=== PATIENT | male | born 1955 | race Caucasian/White ===

== ENCOUNTER 2024-01-11 12:00 | Inpatient (IN) ==
[2024-01-11] MEDS ORDERED: Albuterol (2.5 MG) 0.5 % CONC 0.5 ML NEB.SOLN INH ONE (12:15)
[2024-01-11] MEDS ORDERED: Albuterol/Ipratropium NEB.SOL (2.5/0.5 MG) 3 ML NEB.SOLN ONE (12:16)
[2024-01-11 12:33] LABS: ABS Basophils 0.1 10^3/uL (0.0-0.1); ABS Eosinophils 0.1 10^3/uL (0.0-0.5); ABS Lymphocytes 0.6 10^3/uL (1.0-4.8); ABS Monocytes 0.5 10^3/uL (0.0-1.1); ABS Neutrophils 9.7 10^3/uL (1.5-7.6); ABS Nucleated RBC 0.01 10^3/ul; Eosinophil % 0.6 %; Hematocrit 36.6 % (38-53); Hemoglobin 12.1 g/dL (13.2-16.3); Lymphocyte % 5.9 %; Mean Corpuscular Hemoglobin 30.3 pg (27-33); Mean Corpuscular Volume 91.8 fL (80-97); Mean Platelet Volume 8.4 fL (7.5-11.2); Nucleated Red Blood Cells % 0.1 %/100WBC (0.0-0.8); Platelet Count 141 10^3/uL (150-450); Red Blood Count 3.98 10^6/uL (4.06-5.63); Red Cell Distribution Width 16.9 % (12-17); White Blood Count 10.9 10^3/uL (3.6-10.2)
[2024-01-11] MEDS: Albuterol (2.5 MG) 0.5 % CONC 0.5 ML NEB.SOLN INH ONE (12:52)
[2024-01-11 12:59] LABS: High Sens Troponin Baseline 15 pg/mL (<20)
[2024-01-11 13:38] LABS: ALT 20 U/L (7-52); Albumin 3.4 g/dL (3.2-5.2); Albumin/Globulin Ratio 1.7 (1-3); Alkaline Phosphatase 65 U/L (35-149); Anion Gap 7 mmol/L (2-16); Blood Urea Nitrogen 36 mg/dL (6-24); CO2 Carbon Dioxide 28 mmol/L (22-32); Calcium 8.2 mg/dL (8.6-10.3); Chloride 104 mmol/L (101-111); Creatinine, Serum 1.46 mg/dL (0.67-1.17); Glucose 142 mg/dL (70-100); Sodium 139 mmol/L (135-145); Total Bilirubin 0.3 mg/dL (0.2-1.0); Total Protein 5.4 g/dL (6.4-8.9); eGFR CKD-EPI 51.4 (>60)
[2024-01-11] MEDS: methylPREDNISolone SOD SUCC 125 mg 2 ML VIAL IV ONE (13:43)
[2024-01-11 14:03] LABS: High Sensitivity Troponin 1 Hr 17 pg/mL (<20)
[2024-01-11] MEDS: Albuterol 2.5mg/3 ml (0.083%) NEB.SOLN INH ONE (14:45)
[2024-01-11] MEDS ORDERED: Albuterol/Ipratropium NEB.SOL (2.5/0.5 MG) 3 ML NEB.SOLN INH PRN (15:17)
[2024-01-11 15:18] LABS: Potassium Redraw 4.6 mmol/L (3.5-5.0)
[2024-01-11] MEDS: Nicotine PATCH 21 MG/24 HR PATCH TRANSDERM SCH (17:21)
[2024-01-11] MEDS: cefTRIAXone 1 gm/50 mL D5W 1 GM/50 ML BAG IV SCH (17:23)
[2024-01-11] MEDS ORDERED: Dextrose 50% Syringe 50 ml 25 GM/50 ML SYRINGE IV PUSH PRN (17:33)
[2024-01-11 17:45] LABS: INR 1.35 (0.83-1.13)
[2024-01-11] MEDS: Haloperidol 5 mg/ml SDV IV/IM 5 MG/ML AMP IV SLOW PU ONE (22:48)
[2024-01-11] MEDS ORDERED: Rocuronium 50 mg VIAL 10 mg/ml 5 ml VIAL (50 mg) ONE (22:55)
[2024-01-11] MEDS ORDERED: Succinylcholine 200 mg VIAL 20 mg/ml 10 ml VIAL (200 mg) ONE (22:55)
[2024-01-11] MEDS ORDERED: Ketamine HCL 50 mg/ml 10 ml VIAL (500 MG) ONE (22:58)
[2024-01-11] MEDS ORDERED: Propofol 10 mg/ml 100 ML BTL 1,000 MG/100 ML BTL ONE (23:03)
[2024-01-11] MEDS ORDERED: Norepinephrine 4 MG/250mL D5W 4,000 MCG/250 ML BAG IV ONE (23:16)
[2024-01-11 23:49] LABS: PCO2 Arterial 58 mmHg (35-45); PO2 Arterial 77 mmHg (80-100)
[2024-01-11] MEDS: Albuterol/Ipratropium NEB.SOL (2.5/0.5 MG) 3 ML NEB.SOLN INH SCH (23:49)
[2024-01-11] MEDS: Norepinephrine 4 MG/250mL D5W 4,000 MCG/250 ML BAG IV SCH (23:50)
[2024-01-11] MEDS: Propofol 10 mg/ml 100 ML BTL 1,000 MG/100 ML BTL IV SCH (23:51)
[2024-01-11] MEDS: fentaNYL 100 mcg/2 ml 50 MCG/ML VIAL IV SLOW PU PRN (23:56)
[2024-01-12] MEDS ORDERED: fentaNYL 100 mcg/2 ml 50 MCG/ML VIAL IV SLOW PU PRN (00:21)
[2024-01-12 01:31] LABS: Body Fluid Appearance Cloudy; Body Fluid Source Thoracentesis Fluid
[2024-01-12 01:32] LABS: Body Fluid Color Amber
[2024-01-12] MEDS: fentaNYL INFUSION 50 mcg/mL VL 2,500 MCG/50 ML VIAL IV SCH (01:50)
[2024-01-12 02:35] LABS: Body Fluid Total Nucleated 224 /mcL
[2024-01-12 03:11] LABS: Body Fluid Mono 50 %; Body Fluid Total Cells Counted 200
[2024-01-12] MEDS ORDERED: Dextrose 50% Syringe 50 ml 25 GM/50 ML SYRINGE IV PUSH PRN (03:44)
[2024-01-12] MEDS ORDERED: .Amiodarone 24HR ONLY IV Protocol Order Note IV ONE (03:46)
[2024-01-12] MEDS: Chlorhexidine MOUTHWASH 0.12% 15 ML UDC TOPICAL SCH (03:51)
[2024-01-12] MEDS ORDERED: Amiodarone 360 MG IVPREMIX 360 MG/200 ML BAG IV SCH ×2 (04:00→10:00)
[2024-01-12 05:02] LABS: ABS Basophils 0.1 10^3/uL (0.0-0.1); ABS Lymphocytes 0.4 10^3/uL (1.0-4.8); ABS Monocytes 0.3 10^3/uL (0.0-1.1); ABS Neutrophils 12.3 10^3/uL (1.5-7.6); ABS Nucleated RBC 0.01 10^3/ul; Hematocrit 38.7 % (38-53); Hemoglobin 12.7 g/dL (13.2-16.3); Mean Corpuscular Hemoglobin 29.5 pg (27-33); Mean Corpuscular Hgb Conc 32.7 g/dL (31-36); Mean Corpuscular Volume 90.1 fL (80-97); Mean Platelet Volume 8.8 fL (7.5-11.2); Nucleated Red Blood Cells % 0.1 %/100WBC (0.0-0.8); Platelet Count 195 10^3/uL (150-450); Red Blood Count 4.29 10^6/uL (4.06-5.63); Red Cell Distribution Width 17.1 % (12-17); White Blood Count 13.1 10^3/uL (3.6-10.2)
[2024-01-12] MEDS: Famotidine IV 10 MG/ML 2 ml VIAL (20 mg) IV SLOW PU SCH (05:22)
[2024-01-12 05:26] LABS: Urine Appearance Clear; Urine Bilirubin Negative (Negative); Urine Blood Negative (Negative); Urine Color Light-Yellow; Urine Glucose 4+ (>=1000 mg/dL) (Negative); Urine Ketones Negative (Negative); Urine Nitrite Negative (Negative); Urine Protein Trace (Negative); Urine Specific Gravity 1.026 (1.002-1.030); Urine Urobilinogen Negative (Negative)
[2024-01-12 05:51] LABS: Creatinine, Serum 1.65 mg/dL (0.67-1.17); Magnesium 2.2 mg/dL (1.9-2.7); Potassium 5.7 mmol/L (3.5-5.0); eGFR CKD-EPI 44.4 (>60)
[2024-01-12] MEDS: Enoxaparin 40 MG/0.4 ML SYR SUBCUT SCH (06:32)
[2024-01-12] MEDS: Dextrose 50% Syringe 50 ml 25 GM/50 ML SYRINGE IV PUSH ONE (08:51)
[2024-01-12] MEDS: Sulfur Hexaflouride MICROSPHR 25 MG VIAL IV ONE (10:10)
[2024-01-12] MEDS: methylPREDNISolone SOD SUCC 40 mg/ml 1 ml VIAL IV SCH (10:11)
[2024-01-12 14:34] LABS: Magnesium 2.3 mg/dL (1.9-2.7); Potassium Redraw 4.8 mmol/L (3.5-5.0)
[2024-01-12] MEDS ORDERED: Atropine 1% (ORAL/SL) 15 ML BTL SL PRN (15:01)
[2024-01-12] MEDS ORDERED: Ondansetron 4 mg VIAL 2 MG/ML 2 ml VIAL IV PRN (15:01)
[2024-01-12 20:36] VITALS: BP 72/44
[2024-01-12] MEDS ORDERED: Famotidine IV 10 MG/ML 2 ml VIAL (20 mg) IV SLOW PU SCH (23:45)
[2024-01-13 11:07] LABS: Lactate Dehydrogenase, BF 114 U/L
== END 2024-01-12 19:41 | disposition expired | DRG 193 ==
LOC: ED 12:00 → EDHOLD 12:00 → ICU 19:18 → SUATTDRO 01-12 01:00
PROVIDERS: ADMIT Internal Medicine; ATTEND Student in an Organized Health Care Education/Training Program